=== PATIENT | female | born 1945 | race Caucasian/White ===

== ENCOUNTER 2018-08-08 21:28 | Emergency (ER) | payer OTHER ==
[~2018-08-08] VITALS: Ht 160 cm; Wt 90.7 kg
[~2018-08-08 21:28] MED LIST: COZAAR25 MG; DIAZEPAM10 MG PO; KETO10TA2 PO; MEDROLPACK PO; MOTRIN800 MG PO; ORPH100T PO; VASOFLEX TABLET1 TAB
== END 2018-08-09 02:40 | disposition left against medical advice (07) ==
LOC: ER 21:28
DX: R10.32 Left lower quadrant pain (principal)